=== PATIENT | female | born 1990 | race Caucasian/White ===

== ENCOUNTER 2016-03-12 10:13 | Emergency (ER) | payer BC ==
[2016-03-12] MEDS ORDERED: ONDANSETRON 4 MG/2 ML VIAL IVP ONE (10:28)
[2016-03-12] MEDS ORDERED: HYDROmorphONE/DILAUDID 1 MG/ML SYR IVP ONE (10:28)
[2016-03-12] MEDS ORDERED: KETOROLAC 30 MG/1 ML SDV IVP ONE (10:28)
[2016-03-12] MEDS ORDERED: NS 1,000 ML IV ONE ×2 (10:28→11:57)
--- NOTE | 2016-03-12 10:33 | EDPHY ---
H & P Stated Complaint: 3 days bloody diarrhea Time Seen by Provider: 03/12/16 10:22 - Personal History LMP (Females 10-55): 22-28 Days Ago Current Tetanus/Diphtheria Vaccine: Yes Tetanus Vaccine Date: 2008 - Medical/Surgical History Hx Asthma: Yes Hx Chronic Respiratory Disease: No Hx Diabetes: No Hx Cardiac Disease: No Hx Renal Disease: Yes Hx Cirrhosis: No Hx Alcoholism: Yes Hx HIV/AIDS: No Hx Splenectomy or Spleen Trauma: No Other PMH: anxiety, bipolar, depression, Hx. nephrectomy as . IBS. Asthma - Social History Smoking Status: Never smoked Constitutional: Initial Vital Signs Temperature (C) 36.7 C 03/12/16 10:19 Heart Rate 90 03/12/16 10:19 Respiratory Rate 16 03/12/16 10:19 Blood Pressure 121/82 H 03/12/16 10:19 O2 Sat (%) 95 03/12/16 10:19 O2 Delivery Mode Room Air Allergies/Adverse Reactions: No Known Allergies Allergy (Verified 03/12/16 10:16) Home Medications: Medication Instructions Recorded Cetirizine [ZyrTEC 10 mg (*)] 10 mg PO HS 06/13/14 Cholecalciferol Vit D3 [Vitamin D3 5,000 units PO DAILY 06/13/14 (*)] Docusate Sodium [Colace 100 MG (*)] 100 mg PO BID 06/13/14 Lansoprazole [Prevacid] 30 mg PO DAILY 06/13/14 Ranitidine HCl [Zantac 75] 150 mg PO HS 06/13/14 Ziprasidone HCl [Geodon 40MG (*)] 120 mg PO HS 06/13/14 Ziprasidone HCl [Geodon 40MG (*)] 40 mg PO DAILY #30 cap 06/19/14 Ziprasidone HCl [Geodon 40MG (*)] 60 mg PO DAILY@18 #60 cap 06/19/14 Gabapentin 05/12/15 Vyvanse 05/12/15 KLONOPIN 03/12/16 Propranolol HCl 03/12/16 Medical Decision Making ED Course/Re-evaluation: CHIEF COMPLAINT: Abdominal pain HISTORY OF PRESENT ILLNESS: 25-year-old female who has a long history of irritable bowel syndrome. She throughout her life it intermittent constipation and diarrhea. About 3 weeks ago she started having some significant constipation and was then having bowel movements and developed some bright red rectal bleeding which was painless. This happened her before. In fact, she has had a full colonoscopy recently to rule out any inflammatory bowel diseases and everything was negative the deemed her to have irritable bowel syndrome and she treats it symptomatically. Although throughout the years she has had intermittent bloody stools over the last 2 days she has had abdominal pain which now is located over the umbilicus and right lower quadrant. She is nauseated without vomiting. She has also been having diarrhea for several days. There is some bright red blood in the diarrhea but she states she was constipated right before this and that is when the bleeding started. She denies fevers or chills. She denies any other symptoms. She has never had any abdominal surgeries. REVIEW OF SYSTEMS: A 10 point review of systems was performed and is negative with the exception of the elements mentioned in the history of present illness. PHYSICAL EXAM: HR, BP, O2 Sat, RR. Temp noted General Appearance: Alert, well hydrated, appropriate, and non-toxic appearing. Head: Atraumatic without scalp tenderness or obvious injury Eyes: Pupils equal, round, reactive to light and accommodation, EOMI, no trauma , no injection. Ears: Clear bilaterally, no perforation, normal landmarks Nose: Atraumatic, no rhinorrhea, clear. Throat: There is no erythema or exudates, no lesions, normal tonsils, mucus membranes moist. Neck: Supple, 2+ carotid upstroke, nontender, no lymphadenopathy. Respiratory: No retractions, no distress, no wheezes, and no accessory muscle use. Lungs are clear to auscultation bilaterally. Cardiovascular: Regular rate and rhythm, no murmurs, rubs, or gallops. Bilateral carotid, radial, dorsalis pedis, and posterior tibial pulses intact. Good capillary refill all extremities. Gastrointestinal: Abdomen is soft, tenderness over McBurney's point, non- distended, no masses, no rebound, no guarding, no peritoneal signs. Musculoskeletal: Normal active ROM of all extremities, atraumatic. Neurological: Alert, appropriate, and interactive. The patient has normal DTRs and non-focal cranial nerves, motor, sensory, and cerebellar exam. Skin: No rashes, good turgor, no nodules on palpation. Past medical history: Irritable bowel syndrome Past surgical history: Colonoscopy Family history: No inflammatory bowel diseases according to the patient and the father Social history: Single, does not abuse tobacco drugs or alcohol, employed DIAGNOSTICS/PROCEDURES/CRITICAL CARE TIME: Study: CT of the abdomen and pelvis with IV contrast Indication: right lower quadrant pain Results: CT scan of the abdomen and pelvis was obtained. The results of the study are constipation even in the ascending colon and an atrophic kidney otherwise no acute findings. The study was read by the radiologist, Dr. Ramakrishna Mckenzie. I viewed the images myself on the PACS system. DIFFERENTIAL DIAGNOSIS: The differential diagnosis for the patient's abdominal pain included but was not limited to ovarian cyst, pelvic inflammatory disease, ovarian torsion, urinary tract infection, ectopic , cholecystitis, and appendicitis. MEDICAL DECISION MAKING: This patient is in no distress. We established IV access drawing blood giving IV fluids antiemetics and pain meds. She is having pain localized to the right lower quadrant. I am not too concerned about her bright red rectal blood which is painless and she has had recurrent bright red rectal bleeding over the last several years and negative colonoscopy to rule out any inflammatory bowel diseases. This patient has no acute findings on her abdominal pelvic CT scan and her laboratory studies are essentially unremarkable. She does have constipation even on the right side of her colon and I would imagine that is causing her symptoms. I will ask her to use some magnesium citrate unclear out completely. She will follow up with a newspaper editor. - Data Points Laboratory Results: Laboratory Results 03/12/16 10:29 03/12/16 10:29 03/12/16 03/12/16 10:40 10:29 WBC 6.03 10^3/uL (3.80-9.50) RBC 4.71 10^6/uL (4.18-5.33) Hgb 14.9 g/dL (12.6-16.3) Hct 42.0 % (38.0-47.0) MCV 89.2 fL (81.5-99.8) MCH 31.6 pg (27.9-34.1) MCHC 35.5 g/dL (32.4-36.7) RDW 11.6 % (11.5-15.2) Plt Count 252 10^3/uL (150-400) MPV 9.2 fL (8.7-11.7) Neut % (Auto) 55.2 % (39.3-74.2) Lymph % (Auto) 33.0 % (15.0-45.0) [place] % (Auto) 9.5 % (4.5-13.0) Eos % (Auto) 1.8 % (0.6-7.6) Baso % (Auto) 0.2 L % (0.3-1.7) Nucleat RBC Rel Count 0.0 % (0.0-0.2) Absolute Neuts (auto) 3.33 10^3/uL (1.70-6.50) Absolute Lymphs (auto) 1.99 10^3/uL (1.00-3.00) Absolute Monos (auto) 0.57 10^3/uL (0.30-0.80) Absolute Eos (auto) 0.11 10^3/uL (0.03-0.40) Absolute Basos (auto) 0.01 L 10^3/uL (0.02-0.10) Absolute Nucleated RBC 0.00 10^3/uL (0-0.01) Immature Gran % 0.3 % (0.0-1.1) Immature Gran # 0.02 10^3/uL (0.00-0.10) Sodium 139 mEq/L (134-144) Potassium 4.4 mEq/L (3.5-5.2) Chloride 103 mEq/L (97-110) Carbon Dioxide 24 mEq/l (22-31) Anion Gap 12 mEq/L (8-16) BUN 18 mg/dL (7-23) Creatinine 0.8 mg/dL (0.6-1.0) Estimated GFR > 60 Glucose 104 H mg/dL (70-100) Calcium 10.1 mg/dL (8.5-10.4) Total Bilirubin 0.4 mg/dL (0.1-1.4) Conjugated Bilirubin 0.4 mg/dL (0.0-0.5) Unconjugated Bilirubin 0.0 mg/dL (0.0-1.1) AST 25 IU/L (14-46) ALT 28 IU/L (9-52) Alkaline Phosphatase 72 IU/L (38-126) Total Protein 7.5 g/dL (6.3-8.2) Albumin 4.2 g/dL (3.5-5.0) Lipase 165.0 IU/L (23-300) Beta HCG, Qual NEGATIVE Medications Given: Discontinued Medications Hydromorphone HCl (Dilaudid) 0.5 mg IVP EDNOW ONE Stop: 03/12/16 10:29 Last Admin: 03/12/16 11:05 Dose: 0.5 mg Sodium Chloride (Ns) 1,000 mls @ 0 mls/hr IV ONCE ONE PRN Reason: Wide Open Stop: 03/12/16 10:29 Last Admin: 03/12/16 10:45 Dose: 1,000 mls Sodium Chloride (Ns) 1,000 mls @ 0 mls/hr IV ONCE ONE PRN Reason: Wide Open Stop: 03/12/16 11:58 Last Admin: 03/12/16 12:00 Dose: 1,000 mls Ketorolac Tromethamine (Toradol) 30 mg IVP EDNOW ONE Stop: 03/12/16 10:29 Last Admin: 03/12/16 11:06 Dose: 30 mg Departure - Departure Disposition: Home, Routine, Self-Care Clinical Impression: Constipation Qualifiers: Constipation type: chronic idiopathic constipation Qualifier Code: (K59.04) Chronic idiopathic constipation Condition: Good Instructions: Constipation (ED), High Fiber Diet (ED), Fleet Enema (ED) Additional Instructions: Start daily MiraLax and use 1 bottle of magnesium citrate today Referrals: Maria Luisa Pete PA [Primary Care Provider] - As per Instructions
[2016-03-12 10:50] LABS: % IMMATURE GRANULYOCYTES 0.3 % (0.0-1.1); ABSOLUTE IMMATURE GRANULOCYTES 0.02 10^3/uL (0.00-0.10); ADD DIFF? NO; ADD MORPH? NO; ADD SCAN? NO; ATYPICAL LYMPHOCYTE FLAG 0 (0-99); FRAGMENT RBC FLAG 0 (0-99); HEMOGLOBIN 14.9 g/dL (12.6-16.3); LEFT SHIFT FLG 0 (0-99); LIPEMIA HEMOLYSIS FLAG 90 (0-99); MEAN CELL HEMOGLOBIN 31.6 pg (27.9-34.1); MEAN CELL HEMOGLOBIN CONCENTR. 35.5 g/dL (32.4-36.7); MEAN CELL VOLUME 89.2 fL (81.5-99.8); MEAN PLATELET VOLUME 9.2 fL (8.7-11.7); PLATELET CLUMPS FLAG 0 (0-99); PLATELET COUNT 252 10^3/uL (150-400); RED BLOOD CELL COUNT 4.71 10^6/uL (4.18-5.33); RED CELL DISTRIBUTION WIDTH 11.6 % (11.5-15.2)
[2016-03-12 11:17] LABS: ALANINE AMINOTRANSFERASE 28 IU/L (9-52); ALBUMIN 4.2 g/dL (3.5-5.0); ALKALINE PHOSPHATASE 72 IU/L (38-126); ANION GAP 12 mEq/L (8-16); ASPARTATE AMINOTRANSFERASE 25 IU/L (14-46); BILIRUBIN,TOTAL 0.4 mg/dL (0.1-1.4); BILIRUBIN-CONJUGATED 0.4 mg/dL (0.0-0.5); CALCIUM 10.1 mg/dL (8.5-10.4); CARBON DIOXIDE 24 mEq/l (22-31); CHLORIDE 103 mEq/L (97-110); CREATININE 0.8 mg/dL (0.6-1.0); GLOMERULAR FILTRATION RATE > 60; GLUCOSE 104 mg/dL (70-100); POTASSIUM 4.4 mEq/L (3.5-5.2); SODIUM 139 mEq/L (134-144); TOTAL PROTEIN 7.5 g/dL (6.3-8.2)
[2016-03-12] MEDS ORDERED: IOPAMIDOL (ISOVUE-300) 100 ML BTL IV ONE (11:37)
--- NOTE | 2016-03-12 12:25 | CT ---
CT Scan of the Abdomen and Pelvis (With Contrast) at 1154 hours History: Right lower quadrant abdominal pain. Technique: Axial computed tomographic images of the abdomen and pelvis were obtained with the unevent ful intravenous administration of 90 mL Isovue-300 contrast. No oral or rectal contrast which limits the study. Dose reduction techniques were utilized. CT Abdomen Findings: Lung bases: Normal. Liver: Normal. Biliary system: No obstruction. Spleen: Normal. Pancreas: Normal. Adrenals: Normal. Kidneys: No obstruction or solid renal masses. Atrophy of the left kidney with cortical scarring alfredo cially in the upper pole left kidney. Slight hypertrophy of the right kidney. No ureterolithiasis or perinephric fluid. Abdominal Aorta: No aneurysm. No bowel obstruction, ascites, or significant retroperitoneal lymphadenopathy. CT Pelvis Findings: Moderate stool in the right colon. Appendix appears normal without inflammatory c hanges. Possible minimal appendicoliths. No inflammatory changes. No adnexal masses or significant ad enopathy. No significant free fluid. Impression: 1. Constipation. 2. No CT evidence of appendicitis, abscess or bowel obstruction. 3. Atrophic left kidney with cortical scarring upper pole. No urinary tract obstruction. Findings and recommendations discussed with Emergency Department physician, Dr. Daniel Gutierrez at 1210 hours, today. Final report concurs with initial preliminary interpretation.
[2016-03-12 12:45] VITALS: BP 107/58; PULSE 82; RESP 14; TEMP 97.7; O2SAT 98
== END 2016-03-12 12:44 | disposition home or self-care (01) ==
DX: K59.04 Chronic idiopathic constipation (principal); J45.909 Unspecified asthma, uncomplicated
CPT/HCPCS: 96374; J1170; J1885; Q9967

== ENCOUNTER 2016-05-14 01:43 | Emergency (ER) | payer BC ==
[2016-05-14] MEDS ORDERED: HALOPERIDOL LACT 5 MG/ML INJ ONE (02:02)
[2016-05-14] MEDS ORDERED: HALOPERIDOL LACT 5 MG/ML INJ IM ONE (02:03)
--- NOTE | 2016-05-14 02:03 | EDPHY ---
H & P Stated Complaint: mental health eval request Source: Patient - Personal History LMP (Females 10-55): Now Tetanus Vaccine Date: 2008 - Medical/Surgical History Hx Asthma: Yes Hx Chronic Respiratory Disease: No Hx Diabetes: No Hx Cardiac Disease: No Hx Renal Disease: Yes Hx Cirrhosis: No Hx Alcoholism: Yes Hx HIV/AIDS: No Hx Splenectomy or Spleen Trauma: No Other PMH: anxiety, bipolar, depression, Hx. nephrectomy as infant. IBS. Asthma - Social History Smoking Status: Never smoked HPI/ROS: HPI CHIEF COMPLAINT: Alcohol intoxication, combative behavior HISTORY OF PRESENT ILLNESS: This patient 25-year-old female, she presents emergency room by private vehicle with her father who states he cannot handle her aggressive behavior at home. She has been drinking alcohol. Unclear exactly how much. She is highly intoxicated with alcohol and presents emergency room. Her father does not feel safe with her at home. She is angry, physically aggressive and intoxicated. She does have significant past medical history for bipolar disorder. She has been admitted at [facility] [place] before. Unclear if any drugs. Upon arrival here to the emergency room the patient is is screaming uncontrollably at the top of her lungs, she does not follow commands. She is aggressive with staff she threw a chair. The chair did hit 1 of the ER techs. She is requiring security at bedside. Due to her aggressive behavior intoxication of alcohol, not following commands and screaming at the top of her lungs she will require 5 mg IM Haldol. Past Medical History:Bipolar disorder Past Surgical History: Unknown surgical history Social History: Drinks alcohol, no drugs Family History: Noncontributory ROS REVIEW OF SYSTEMS: A comprehensive 10 point review of systems is otherwise negative aside from elements mentioned in the history of present illness. Exam Constitutional smells of alcohol, acutely agitated, combative, physically aggressive, screaming triage nursing summary reviewed, vital signs reviewed Eyes normal conjunctivae and sclera, EOMI, PERRLA. HENT normal inspection, atraumatic, moist mucus membranes, no epistaxis, neck supple/ no meningismus, no raccoon eyes. Respiratory clear to auscultation bilaterally, normal breath sounds, no respiratory distress, no wheezing. Cardiovascular rate normal, regular rhythm, no murmur, no edema, distal pulses normal. Gastrointestinal soft, non-tender, no rebound, no guarding, normal bowel sounds, no distension, no pulsatile mass. Genitourinary no CVA tenderness. Musculoskeletal no midline vertebral tenderness, full range of motion, no calf swelling, no tenderness of extremities, no meningismus, good pulses, neurovascularly intact. Skin pink, warm, & dry, no rash, skin atraumatic. Neurologic screaming, agitated, moves everything, walks, intoxicated alcohol Psychiatric screaming, agitated Heme/Lymph/Immune no lymphadenopathy. Differential Diagnosis: Includes but is not limited to in a particular order acute alcohol intoxication, bipolar disorder, aggressive behavior, substance abuse, psychosis, christine Medical Decision Making: plan for this patient due to her aggressive behavior and alcohol intoxication she will be put in room 19. She did throw chairs staff we removed her bed. She has no objects in the room. She did receive 5 mg IM Haldol. Will place her on a monitor. Check blood work, alcohol level, drug screen, electrolytes. Re-evaluation: 0642AM: Patient signed over to Dr. Moreno at 7am Shift change. Patient is sleeping. She did come down after two 5 mg doses of IM Haldol. Patient is on a detainer. (Armen Hagen) I assumed care of this patient from Dr. Hagen at 7:00 a.m.. She was cooperative with me while under my care. She underwent mental health evaluation. She does not meet criteria for hospitalization. She is being discharged home to the care of her father, who is here today. He has agreed with this plan. She has an appointment with her counselor/psychiatrist on Wednesday, 4 days hence. She is given instructions about alcohol abuse. She is aware of local support groups. (Shani Moreno) Constitutional: Initial Vital Signs Heart Rate 93 05/14/16 01:45 Respiratory Rate 20 05/14/16 01:45 Blood Pressure 106/88 H 05/14/16 01:45 O2 Sat (%) 98 05/14/16 01:45 O2 Delivery Mode Room Air Allergies/Adverse Reactions: No Known Allergies Allergy (Verified 05/14/16 01:45) Home Medications: Medication Instructions Recorded Cetirizine [ZyrTEC 10 mg (*)] 10 mg PO HS 06/13/14 Cholecalciferol Vit D3 [Vitamin D3 5,000 units PO DAILY 06/13/14 (*)] Docusate Sodium [Colace 100 MG (*)] 100 mg PO BID 06/13/14 Lansoprazole [Prevacid] 30 mg PO DAILY 06/13/14 Ranitidine HCl [Zantac 75] 150 mg PO HS 06/13/14 Ziprasidone HCl [Geodon 40MG (*)] 120 mg PO HS 06/13/14 Ziprasidone HCl [Geodon 40MG (*)] 40 mg PO DAILY #30 cap 06/19/14 Ziprasidone HCl [Geodon 40MG (*)] 60 mg PO DAILY@18 #60 cap 06/19/14 Gabapentin 05/12/15 Vyvanse 05/12/15 KLONOPIN 03/12/16 Propranolol HCl 03/12/16 Medical Decision Making ED Course/Re-evaluation: 07: Patient signed out to me by Dr. Hagen at shift change. (Shani Moreno ) - Data Points Laboratory Results: Laboratory Results 05/14/16 04:16 05/14/16 04:16 05/14/16 05/14/16 05/14/16 04:16 04:16 04:16 WBC 6.13 10^3/uL 10^3/uL (3.80-9.50) RBC 4.54 10^6/uL 10^6/uL (4.18-5.33) Hgb 14.0 g/dL g/dL (12.6-16.3) Hct 40.8 % % (38.0-47.0) MCV 89.9 fL fL (81.5-99.8) MCH 30.8 pg pg (27.9-34.1) MCHC 34.3 g/dL g/dL (32.4-36.7) RDW 11.9 % % (11.5-15.2) Plt Count 288 10^3/uL 10^3/uL (150-400) MPV 9.3 fL fL (8.7-11.7) Neut % (Auto) 39.3 % % (39.3-74.2) Lymph % (Auto) 46.7 % H % (15.0-45.0) [place] % (Auto) 10.3 % % (4.5-13.0) Eos % (Auto) 2.0 % % (0.6-7.6) Baso % (Auto) 0.7 % % (0.3-1.7) Nucleat RBC Rel Count 0.0 % % (0.0-0.2) Absolute Neuts (auto) 2.42 10^3/uL 10^3/uL (1.70-6.50) Absolute Lymphs (auto) 2.86 10^3/uL 10^3/uL (1.00-3.00) Absolute Monos (auto) 0.63 10^3/uL 10^3/uL (0.30-0.80) Absolute Eos (auto) 0.12 10^3/uL 10^3/uL (0.03-0.40) Absolute Basos (auto) 0.04 10^3/uL 10^3/uL (0.02-0.10) Absolute Nucleated RBC 0.00 10^3/uL 10^3/uL (0-0.01) Immature Gran % 1.0 % % (0.0-1.1) Immature Gran # 0.06 10^3/uL 10^3/uL (0.00-0.10) Sodium 146 mEq/L H mEq/L (134-144) Potassium 4.0 mEq/L mEq/L (3.5-5.2) Chloride 109 mEq/L mEq/L (97-110) Carbon Dioxide 22 mEq/l mEq/l (22-31) Anion Gap 15 mEq/L mEq/L (8-16) BUN 10 mg/dL mg/dL (7-23) Creatinine 0.8 mg/dL mg/dL (0.6-1.0) Estimated GFR > 60 Glucose 97 mg/dL mg/dL (70-100) Calcium 9.9 mg/dL mg/dL (8.5-10.4) Beta HCG, Qual NEGATIVE Salicylates < 1.0 mg/dL L mg/dL (2.0-20.0) Urine Opiates Screen Acetaminophen < 10 mcg/mL L mcg/mL (10.0-30.0) Urine Barbiturates Ur Phencyclidine Scrn Ur Amphetamine Screen U Benzodiazepines Scrn Urine Cocaine Screen U Marijuana (THC) Screen Ethyl Alcohol 179 mg/dL H mg/dL (0-10) 05/14/16 02:30 WBC RBC Hgb Hct MCV MCH MCHC RDW Plt Count MPV Neut % (Auto) Lymph % (Auto) [place] % (Auto) Eos % (Auto) Baso % (Auto) Nucleat RBC Rel Count Absolute Neuts (auto) Absolute Lymphs (auto) Absolute Monos (auto) Absolute Eos (auto) Absolute Basos (auto) Absolute Nucleated RBC Immature Gran % Immature Gran # Sodium Potassium Chloride Carbon Dioxide Anion Gap BUN Creatinine Estimated GFR Glucose Calcium Beta HCG, Qual Salicylates Urine Opiates Screen NON-NEGATIVE H (NEGATIVE) Acetaminophen Urine Barbiturates NEGATIVE (NEGATIVE) Ur Phencyclidine Scrn NEGATIVE (NEGATIVE) Ur Amphetamine Screen NON-NEGATIVE H (NEGATIVE) U Benzodiazepines Scrn NEGATIVE (NEGATIVE) Urine Cocaine Screen NEGATIVE (NEGATIVE) U Marijuana (THC) Screen NEGATIVE (NEGATIVE) Ethyl Alcohol Medications Given: Discontinued Medications Haloperidol Lactate (Haldol Injection) 5 mg IM EDNOW ONE Stop: 05/14/16 02:04 Last Admin: 05/14/16 02:58 Dose: 5 mg Departure - Departure Disposition: Home, Routine, Self-Care Clinical Impression: Alcohol abuse Condition: Good Instructions: Abuse of Alcohol (ED) Additional Instructions: Follow up with your psychiatrist as planned. Referrals: FERMÍN LEVY [Other] - As per Instructions
[2016-05-14 04:24] VITALS: PULSE 87
[2016-05-14 04:34] LABS: ABSOLUTE IMMATURE GRANULOCYTES 0.06 10^3/uL (0.00-0.10); ADD DIFF? NO; ADD MORPH? NO; ADD SCAN? NO; ATYPICAL LYMPHOCYTE FLAG 10 (0-99); FRAGMENT RBC FLAG 10 (0-99); HEMATOCRIT 40.8 % (38.0-47.0); LEFT SHIFT FLG 10 (0-99); LIPEMIA HEMOLYSIS FLAG 90 (0-99); MEAN CELL HEMOGLOBIN 30.8 pg (27.9-34.1); MEAN CELL HEMOGLOBIN CONCENTR. 34.3 g/dL (32.4-36.7); MEAN CELL VOLUME 89.9 fL (81.5-99.8); MEAN PLATELET VOLUME 9.3 fL (8.7-11.7); PLATELET CLUMPS FLAG 0 (0-99); PLATELET COUNT 288 10^3/uL (150-400); RED BLOOD CELL COUNT 4.54 10^6/uL (4.18-5.33); RED CELL DISTRIBUTION WIDTH 11.9 % (11.5-15.2)
[2016-05-14 04:46] LABS: ANION GAP 15 mEq/L (8-16); CALCIUM 9.9 mg/dL (8.5-10.4); CARBON DIOXIDE 22 mEq/l (22-31); CHLORIDE 109 mEq/L (97-110); CREATININE 0.8 mg/dL (0.6-1.0); ETHANOL SERUM 179 mg/dL (0-10); GLOMERULAR FILTRATION RATE > 60; GLUCOSE 97 mg/dL (70-100); SALICYLATE < 1.0 mg/dL (2.0-20.0); SODIUM 146 mEq/L (134-144)
[2016-05-14 10:55] VITALS: BP 118/70; RESP 80; O2SAT 16
== END 2016-05-14 10:44 | disposition home or self-care (01) ==
DX: F10.10 Alcohol abuse, uncomplicated (principal); J45.909 Unspecified asthma, uncomplicated
CPT/HCPCS: 80305; G0480

== ENCOUNTER 2016-06-10 09:18 | Emergency (ER) | payer BC ==
[2016-06-10] MEDS ORDERED: CEPHALEXIN 500 MG CAP PO ONE (10:26)
--- NOTE | 2016-06-10 10:26 | EDPHY ---
H & P Stated Complaint: cut r palm last night 0100/r index finger is numb HPI/ROS: Chief complaint: Right hand laceration History of present illness: This is a 25-year-old female who presents to the emergency department for a right hand laceration. Patient reports that last night she was preparing food when she cut her right hand at the base of the pointer finger. This was approximately 9-10 hours ago. Since then she has had pain at the site of injury. However she is concerned as there is numbness in her pointer finger and she is having trouble flexing it. She denies other associated signs or symptoms including no abnormal coolness to the fingers, no other paresthesias reported. Her tetanus is up-to-date. - Personal History LMP (Females 10-55): Now Current Tetanus/Diphtheria Vaccine: Yes Tetanus Vaccine Date: 2008 - Medical/Surgical History Hx Asthma: Yes Hx Chronic Respiratory Disease: No Hx Diabetes: No Hx Cardiac Disease: No Hx Renal Disease: Yes Hx Cirrhosis: No Hx Alcoholism: Yes Hx HIV/AIDS: No Hx Splenectomy or Spleen Trauma: No Other PMH: anxiety, bipolar, depression, Hx. nephrectomy as infant. IBS. Asthma - Social History Smoking Status: Never smoked - Physical Exam Exam: General: Alert, nontoxic Skin: There is a 3 cm laceration on the palmar surface of the right hand at the base of the pointer finger. Exploration does not reveal foreign bodies. Musculoskeletal: Patient is having difficulty flexing her right pointer finger in the MCP, PIP and the DIP joint, although she can minimally flex them all, she extends it well. She is moving all other digits all joints in all muhammad well. Vascular: Capillary refill brisk in the right pointer finger and other fingers. Radial pulse 2 +. Neurologic: There is decreased sensation to the lateral aspect of the right pointer finger. Sensation appears to be intact to the medial aspect of the finger. The rest of the fingers have good sensation. Constitutional: Initial Vital Signs Temperature (C) 36.4 C 06/10/16 09:23 Heart Rate 88 06/10/16 09:23 Respiratory Rate 18 06/10/16 09:23 Blood Pressure 124/82 H 06/10/16 09:23 O2 Sat (%) 95 06/10/16 09:23 O2 Delivery Mode Room Air Allergies/Adverse Reactions: No Known Allergies Allergy (Verified 05/03/17 09:21) Home Medications: Medication Instructions Recorded Cetirizine [ZyrTEC 10 mg (*)] 10 mg PO HS 06/13/14 Cholecalciferol Vit D3 [Vitamin D3 5,000 units PO DAILY 06/13/14 (*)] Docusate Sodium [Colace 100 MG (*)] 100 mg PO BID 06/13/14 Lansoprazole [Prevacid] 30 mg PO DAILY 06/13/14 Ranitidine HCl [Zantac 75] 150 mg PO HS 06/13/14 Ziprasidone HCl [Geodon 40MG (*)] 120 mg PO HS 06/13/14 Ziprasidone HCl [Geodon 40MG (*)] 40 mg PO DAILY #30 cap 06/19/14 Ziprasidone HCl [Geodon 40MG (*)] 60 mg PO DAILY@18 #60 cap 06/19/14 Gabapentin 05/12/15 Vyvanse 05/12/15 KLONOPIN 03/12/16 Propranolol HCl 03/12/16 Cephalexin [Keflex] 500 mg PO QID 5 Days 06/10/16 Medical Decision Making Procedures: Procedure: Laceration repair. Verbal consent was obtained from the patient. The 3 cm laceration on the right hand was anesthetized in the usual fashion. The wound was irrigated, draped and explored to its base with a gloved finger. There were no deep structures involved. No tendon injury was identified. The wound was repaired with 5 0 Prolene, loose approximation. The wound repair was simple. The procedure was performed by myself. Procedure: Splint placement. A finger splint was applied. After application of the splint I returned and re- examined the patient. The splint was adequately immobilizing the joint and distal to the splint the patient's circulation and sensation was intact. ED Course/Re-evaluation: Patient seen under the supervision of my secondary supervising physician Dr. Jude Arredondo. Patient presents to the emergency department for evaluation of a laceration to her right hand. I am concerned she has an injury to a nerve and possibly a flexor tendon. Her hand is vascularly intact. Her tetanus is already up-to-date. I have consulted with Dr. Casper. He is comfortable with loose closure and splinting in the emergency room. Patient is anesthetized, the wound is copiously irrigated, loosely approximated and splinted. She is started on Keflex. Patient is discharged home. I have had lengthy discussion on the importance of following with hand surgery for definitive care and referral information was provided. Strict return precautions were given. Patient voiced understanding and agreement with plan. Differential Diagnosis: Included but not limited to skin laceration, deep structure injury, foreign body contamination - Data Points Medications Given: Discontinued Medications Cephalexin HCl (Keflex) 500 mg PO EDNOW ONE PRN Reason: Protocol Stop: 06/10/16 10:27 Last Admin: 06/10/16 10:29 Dose: 500 mg Departure - Departure Disposition: Home, Routine, Self-Care Clinical Impression: Finger laceration with complication Qualifiers: Encounter type: initial encounter Qualified Code(s): S61.219A - Laceration without foreign body of unspecified finger without damage to nail, initial encounter Condition: Good Instructions: Care For Your Stitches (ED), Laceration (ED), Acute Wounds (ED) Additional Instructions: Please call and arrange a follow-up appoint with hand surgery this week If symptoms worsen or new symptoms develop return to the emergency room for recheck Referrals: Maria Luisa Pete PA [Primary Care Provider] - As per Instructions Matti Casper MD [Medical Doctor] - As per Instructions Stand Alone Forms: Work Excuse Prescriptions: Cephalexin [Keflex] 500 mg PO QID 5 Days
[2016-06-10 11:10] VITALS: BP 112/76; PULSE 75; RESP 16; TEMP 96.8; O2SAT 98
== END 2016-06-10 11:10 | disposition home or self-care (01) ==
PROC: 0HQFXZZ Repair Right Hand Skin, External Approach (ICD-10-PCS; principal; 2016-06-10)
DX: S61.411A Laceration without foreign body of right hand, initial encounter (principal); J45.909 Unspecified asthma, uncomplicated; W45.8XXA Other foreign body or object entering through skin, initial encounter; Y99.8 Other external cause status; Y93.89 Activity, other specified

== ENCOUNTER 2016-07-09 23:32 | Emergency (ER) | payer BC ==
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
[2016-07-10 00:12] LABS: % IMMATURE GRANULYOCYTES 0.3 % (0.0-1.1); ABSOLUTE IMMATURE GRANULOCYTES 0.03 10^3/uL (0.00-0.10); ADD DIFF? NO; ADD MORPH? NO; ADD SCAN? NO; ATYPICAL LYMPHOCYTE FLAG 20 (0-99); FRAGMENT RBC FLAG 0 (0-99); HEMATOCRIT 41.1 % (38.0-47.0); HEMOGLOBIN 15.1 g/dL (12.6-16.3); LEFT SHIFT FLG 0 (0-99); LIPEMIA HEMOLYSIS FLAG 90 (0-99); MEAN CELL HEMOGLOBIN 31.9 pg (27.9-34.1); MEAN CELL HEMOGLOBIN CONCENTR. 36.7 g/dL (32.4-36.7); MEAN CELL VOLUME 86.9 fL (81.5-99.8); MEAN PLATELET VOLUME 9.6 fL (8.7-11.7); PLATELET CLUMPS FLAG 0 (0-99); PLATELET COUNT 296 10^3/uL (150-400); RED BLOOD CELL COUNT 4.73 10^6/uL (4.18-5.33); RED CELL DISTRIBUTION WIDTH 11.5 % (11.5-15.2)
[2016-07-10 00:30] LABS: ANION GAP 15 mEq/L (8-16); CARBON DIOXIDE 20 mEq/l (22-31); CHLORIDE 109 mEq/L (97-110); ETHANOL SERUM 220 mg/dL (0-10); GLOMERULAR FILTRATION RATE > 60; GLUCOSE 95 mg/dL (70-100); POTASSIUM 4.2 mEq/L (3.5-5.2); SALICYLATE < 1.0 mg/dL (2.0-20.0); SODIUM 144 mEq/L (134-144)
[2016-07-10] MEDS: ZIPRASIDONE HCL 40 MG CAP PO SCH ×2 (00:30→08:57)
[2016-07-10] MEDS ORDERED: LORazepam 2 MG/ML INJ ONE (01:24)
[2016-07-10] MEDS ORDERED: LORazepam 2 MG/ML INJ IVP ONE (01:40)
[2016-07-10] MEDS ORDERED: clonazePAM 1 MG TAB ONE (08:35)
[2016-07-10] MEDS ORDERED: clonazePAM 1 MG TAB PO ONE (08:48)
[2016-07-10] MEDS ORDERED: FAMOTIDINE 20 MG TAB ONE (08:49)
[2016-07-10] MEDS ORDERED: FAMOTIDINE 20 MG TAB PO ONE (08:57)
[2016-07-10 09:09] VITALS: RESP 16
[2016-07-10 12:01] VITALS: BP 132/78; PULSE 89; TEMP 98.7; O2SAT 95
== END 2016-07-10 12:00 ==
DX: F28 Other psychotic disorder not due to a substance or known physiological condition (principal); F10.120 Alcohol abuse with intoxication, uncomplicated; J45.909 Unspecified asthma, uncomplicated; F17.200 Nicotine dependence, unspecified, uncomplicated
CPT/HCPCS: 80305; 96374; G0480; J2060

== ENCOUNTER 2016-07-16 18:54 | Emergency (ER) | payer BC, OTHER ==
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
[2016-07-16] MEDS ORDERED: AZITHROMYCIN 250 MG TAB PO ONE ×2 (21:19→23:29)
[2016-07-16] MEDS ORDERED: CEFTRIAXONE IM 350 MG/ML SYRINGE IM ONE (21:19)
[2016-07-16 23:48] VITALS: BP 107/94; PULSE 88; RESP 14; TEMP 97.9; O2SAT 93
== END 2016-07-17 00:46 | disposition home or self-care (01) ==
LOC: EDUNIT# → EEVIPCON 18:54
DX: N76.0 Acute vaginitis (principal); J45.909 Unspecified asthma, uncomplicated; F17.200 Nicotine dependence, unspecified, uncomplicated
CPT/HCPCS: J0696

== ENCOUNTER 2017-11-22 21:54 | Emergency (ER) | payer BC ==
[2017-11-22] MEDS ORDERED: NS 1,000 ML IV ONE (22:15)
--- NOTE | 2017-11-22 22:15 | EDPHY ---
H & P Stated Complaint: abd pain, vomiting, diarrhea Time Seen by Provider: 11/22/17 22:16 HPI/ROS: HPI CHIEF COMPLAINT: Abdominal pain. HISTORY OF PRESENT ILLNESS: 26-year-old female, otherwise healthy does have a history of anxiety, bipolar disorder and IBS presents emergency room with abdominal pain. She reports to me that she has had abdominal pain and this type of abdominal pain for months. However today progressively got worse over the last 24 hr. She describes sharp stabbing is mainly on her right side. Right lower quadrant and right upper quadrant. She has associated nausea. She states she vomited multiple times. Also states she had streaks of bright red blood in her vomit. Denies fever, denies chest pain shortness of breath, denies urinary symptoms. Past Medical History: IBS, asthma, anxiety, bipolar disorder Past Surgical History: No recent surgery Social History: denies drugs alcohol tobacco. Family History: Noncontributory ROS REVIEW OF SYSTEMS: 10 Systems were reviewed and negative with the exception of the elements mentioned in the history of present illness. Exam Constitutional nontoxic no acute distress, triage nursing summary reviewed, vital signs reviewed, awake/alert. Eyes normal conjunctivae and sclera, EOMI, PERRLA. HENT normal inspection, atraumatic, moist mucus membranes, no epistaxis, neck supple/ no meningismus, no raccoon eyes. Respiratory clear to auscultation bilaterally, normal breath sounds, no respiratory distress, no wheezing. Cardiovascular rate normal, regular rhythm, no murmur, no edema, distal pulses normal. Gastrointestinal mild right-sided abdominal pain, no rebound, no guarding, normal bowel sounds, no distension, no pulsatile mass. Genitourinary no CVA tenderness. Musculoskeletal no midline vertebral tenderness, full range of motion, no calf swelling, no tenderness of extremities, no meningismus, good pulses, neurovascularly intact. Skin pink, warm, & dry, no rash, skin atraumatic. Neurologic awake, alert and oriented x 3, AAOx3, moves all 4 extremities equally, motor intact, sensory intact, CN II-XII intact, normal cerebellar, normal vision, normal speech. Psychiatric normal mood/affect. Heme/Lymph/Immune no lymphadenopathy. Differential diagnosis includes but is not limited to and in no particular order : Bowel obstruction, appendicitis, gallbladder disease, diverticulitis, colitis , enteritis, perforated viscus, gastritis, GERD, esophagitis, urinary tract infection, pyelonephritis, kidney stones Medical Decision Making: Plan for this patient IV established with IV fluid bolus, IV Zofran 4 mg for nausea, IV Dilaudid 0.5 mg for pain control, basic blood work, urinalysis, CT scan abdomen pelvis with IV contrast rule out acute appendicitis given right-sided abdominal pain. Re-evaluation: CT scan abdomen pelvis with IV contrast: Negative for acute inflammatory process called to me by Dr. Hardin Blood work and urinalysis reviewed. Urinalysis indicated nitrite positive UTI. Urine cultures been sent. 1 g Rocephin has been given. Keflex and peridium for home. Return precautions discussed with patient return emergency room for worsening abdominal pain, fever, vomiting. At time of discharge abdomen is soft nontender she is comfortable this plan. Patient explains to me that she has recurrent urinary tract infection. Multiple per month. I do recommend she follows up with Urology for this. Referral provided. Source: Patient - Personal History LMP (Females 10-55): Extended Cycle BCP/Inj Tetanus Vaccine Date: 2008 - Medical/Surgical History Hx Asthma: Yes Hx Chronic Respiratory Disease: No Hx Diabetes: No Hx Cardiac Disease: No Hx Renal Disease: Yes Hx Cirrhosis: No Hx Alcoholism: Yes Hx HIV/AIDS: No Hx Splenectomy or Spleen Trauma: No Other PMH: anxiety, bipolar, depression, Hx. nephrectomy as infant. IBS, PTSD. Asthma - Social History Smoking Status: Current every day smoker Constitutional: Initial Vital Signs Temperature (C) 36.8 C 11/22/17 21:58 Heart Rate 84 11/22/17 21:58 Respiratory Rate 20 11/22/17 21:58 Blood Pressure 132/92 H 11/22/17 21:58 O2 Sat (%) 93 11/22/17 21:58 O2 Delivery Mode Room Air Allergies/Adverse Reactions: No Known Allergies Allergy (Verified 11/22/17 21:58) Home Medications: Medication Instructions Recorded Cetirizine [ZyrTEC 10 mg (*)] 10 mg PO HS 06/13/14 Cholecalciferol Vit D3 [Vitamin D3 5,000 units PO DAILY 06/13/14 (*)] Docusate Sodium [Colace 100 MG (*)] 100 mg PO BID 06/13/14 Lansoprazole [Prevacid] 30 mg PO DAILY 06/13/14 Ranitidine HCl [Zantac 75] 150 mg PO HS 06/13/14 Ziprasidone HCl [Geodon 40MG (*)] 120 mg PO HS 06/13/14 Ziprasidone HCl [Geodon 40MG (*)] 40 mg PO DAILY #30 cap 06/19/14 Ziprasidone HCl [Geodon 40MG (*)] 60 mg PO DAILY@18 #60 cap 06/19/14 Gabapentin 05/12/15 Vyvanse 05/12/15 KLONOPIN 03/12/16 Propranolol HCl 03/12/16 Cephalexin [Keflex] 500 mg PO QID 5 Days cap 06/10/16 Metronidazole 500 mg PO BID #14 tablet 07/16/16 Cephalexin [Keflex] 500 mg PO Q6H #28 cap 11/23/17 Medical Decision Making - Diagnostics Imaging Results: Imaging Impressions Abdomen CT 11/22/17 22:28 Impression: 1. No acute abdominal or pelvic abnormality. 2. Negative for appendicitis. There is been no significant change from the prior study. Results called and discussed with Armen Hagen MD on 11/22/2017 at 23:28. - Data Points Laboratory Results: Laboratory Results 11/22/17 22:17 11/22/17 22:17 11/22/17 11/22/17 11/22/17 23:30 22:17 22:17 WBC RBC Hgb Hct MCV MCH MCHC RDW Plt Count MPV Neut % (Auto) Lymph % (Auto) [place] % (Auto) Eos % (Auto) Baso % (Auto) Nucleat RBC Rel Count Absolute Neuts (auto) Absolute Lymphs (auto) Absolute Monos (auto) Absolute Eos (auto) Absolute Basos (auto) Absolute Nucleated RBC Immature Gran % Immature Gran # PT 13.2 SEC SEC (12.0-15.0) INR 0.98 (0.83-1.16) APTT 29.2 SEC SEC (23.0-38.0) VBG Lactic Acid Sodium Potassium Chloride Carbon Dioxide Anion Gap BUN Creatinine Estimated GFR Glucose Calcium Total Bilirubin Conjugated Bilirubin Unconjugated Bilirubin AST ALT Alkaline Phosphatase Total Protein Albumin Lipase Beta HCG, Qual NEGATIVE Urine Color YELLOW Urine Appearance MODERATELY TURBID Urine pH 6.0 (5.0-7.5) Ur Specific [place] 1.027 (1.002-1.030) Urine Protein NEGATIVE (NEGATIVE) Urine Ketones NEGATIVE (NEGATIVE) Urine Blood NEGATIVE (NEGATIVE) Urine Nitrate POSITIVE H (NEGATIVE) Urine Bilirubin NEGATIVE (NEGATIVE) Urine Urobilinogen NEGATIVE EU EU (0.2-1.0) Ur Leukocyte Esterase 3+ H (NEGATIVE) Urine RBC 1-3 /hpf /hpf (0-3) Urine WBC 50-182 /hpf H /hpf (0-3) Ur Epithelial Cells TRACE /lpf /lpf (NONE-1+) Urine Bacteria 1+ /hpf H /hpf (NONE SEEN) Urine Glucose NEGATIVE (NEGATIVE) 11/22/17 11/22/17 11/22/17 22:17 22:17 22:17 WBC 7.33 10^3/uL 10^3/uL (3.80-9.50) RBC 5.28 10^6/uL 10^6/uL (4.18-5.33) Hgb 16.2 g/dL g/dL (12.6-16.3) Hct 47.0 % % (38.0-47.0) MCV 89.0 fL fL (81.5-99.8) MCH 30.7 pg pg (27.9-34.1) MCHC 34.5 g/dL g/dL (32.4-36.7) RDW 12.5 % % (11.5-15.2) Plt Count 256 10^3/uL 10^3/uL (150-400) MPV 9.8 fL fL (8.7-11.7) Neut % (Auto) 52.7 % % (39.3-74.2) Lymph % (Auto) 35.7 % % (15.0-45.0) [place] % (Auto) 10.2 % % (4.5-13.0) Eos % (Auto) 0.8 % % (0.6-7.6) Baso % (Auto) 0.3 % % (0.3-1.7) Nucleat RBC Rel Count 0.0 % % (0.0-0.2) Absolute Neuts (auto) 3.86 10^3/uL 10^3/uL (1.70-6.50) Absolute Lymphs (auto) 2.62 10^3/uL 10^3/uL (1.00-3.00) Absolute Monos (auto) 0.75 10^3/uL 10^3/uL (0.30-0.80) Absolute Eos (auto) 0.06 10^3/uL 10^3/uL (0.03-0.40) Absolute Basos (auto) 0.02 10^3/uL 10^3/uL (0.02-0.10) Absolute Nucleated RBC 0.00 10^3/uL 10^3/uL (0-0.01) Immature Gran % 0.3 % % (0.0-1.1) Immature Gran # 0.02 10^3/uL 10^3/uL (0.00-0.10) PT INR APTT VBG Lactic Acid 1.3 mmol/L mmol/L (0.7-2.1) Sodium 141 mEq/L mEq/L (135-145) Potassium 4.5 mEq/L mEq/L (3.3-5.0) Chloride 103 mEq/L mEq/L (97-110) Carbon Dioxide 22 mEq/l mEq/l (22-31) Anion Gap 16 mEq/L H mEq/L (6-14) BUN 14 mg/dL mg/dL (7-23) Creatinine 1.0 mg/dL mg/dL (0.6-1.0) Estimated GFR > 60 Glucose 96 mg/dL mg/dL (70-100) Calcium 10.6 mg/dL H mg/dL (8.5-10.4) Total Bilirubin 0.5 mg/dL mg/dL (0.1-1.4) Conjugated Bilirubin 0.2 mg/dL mg/dL (0.0-0.5) Unconjugated Bilirubin 0.3 mg/dL mg/dL (0.0-1.1) AST 25 IU/L IU/L (14-46) ALT 33 IU/L IU/L (9-52) Alkaline Phosphatase 142 IU/L H IU/L (38-126) Total Protein 8.3 g/dL H g/dL (6.3-8.2) Albumin 5.0 g/dL g/dL (3.5-5.0) Lipase 108 IU/L IU/L (23-300) Beta HCG, Qual Urine Color Urine Appearance Urine pH Ur Specific [place] Urine Protein Urine Ketones Urine Blood Urine Nitrate Urine Bilirubin Urine Urobilinogen Ur Leukocyte Esterase Urine RBC Urine WBC Ur Epithelial Cells Urine Bacteria Urine Glucose Medications Given: Discontinued Medications Hydromorphone HCl (Dilaudid) 0.5 mg IVP EDNOW ONE Stop: 11/22/17 22:31 Last Admin: 11/22/17 22:36 Dose: 0.5 mg Sodium Chloride (Ns) 1,000 mls @ 0 mls/hr IV EDNOW ONE; Wide Open PRN Reason: Protocol Stop: 11/22/17 22:16 Last Admin: 11/22/17 22:25 Dose: 1,000 mls Ceftriaxone Sodium/Dextrose (Rocephin 1 Gm (Premix)) 50 mls @ 100 mls/hr IV EDNOW ONE PRN Reason: Protocol Stop: 11/23/17 00:52 Last Admin: 11/23/17 00:47 Dose: 50 mls Departure - Departure Disposition: Home, Routine, Self-Care Clinical Impression: Abdominal pain Qualifiers: Abdominal location: generalized Qualified Code(s): R10.84 - Generalized abdominal pain UTI (urinary tract infection) Qualifiers: Urinary tract infection type: acute cystitis Hematuria presence: without hematuria Qualified Code(s): N30.00 - Acute cystitis without hematuria Condition: Good Instructions: Urinary Tract Infection in Women (ED), Acute Abdominal Pain (ED) Additional Instructions: 1. Drink lots of fluids stay well-hydrated 2. Antibiotics as prescribed. 3. Return emergency room if he develops worsening abdominal pain, fever, vomiting. Referrals: LOPEZ BROWN [Primary Care Provider] - As per Instructions Brandon Wolf MD [Medical Doctor] - As per Instructions Prescriptions: Cephalexin [Keflex] 500 mg PO Q6H #28 cap
[2017-11-22 22:25] LABS: PLATELET COUNT 256 10^3/uL (150-400)
[2017-11-22] MEDS ORDERED: HYDROmorphONE/DILAUDID 2 MG/ML INJ IVP ONE (22:30)
[2017-11-22 22:32] LABS: INR 0.98 (0.83-1.16); PROTIME(PATIENT) 13.2 SEC (12.0-15.0)
[2017-11-22] MEDS ORDERED: IOPAMIDOL (ISOVUE-300) 100 ML BTL ONE (22:40)
[2017-11-23 01:41] VITALS: BP 112/82
== END 2017-11-23 01:41 | disposition home or self-care (01) ==
DX: N39.0 Urinary tract infection, site not specified (principal); Z87.440 Personal history of urinary (tract) infections; Z87.19 Personal history of other diseases of the digestive system
CPT/HCPCS: 96365; J0696; J1170; Q9967

== ENCOUNTER 2017-11-26 16:35 | Emergency (ER) | payer BC ==
[2017-11-26 18:02] LABS: PLATELET COUNT 212 10^3/uL (150-400)
--- NOTE | 2017-11-26 18:10 | EDPHY ---
H & P Stated Complaint: abd pain Time Seen by Provider: 11/26/17 17:54 HPI/ROS: CHIEF COMPLAINT: The right lower quadrant pain HISTORY OF PRESENT ILLNESS: The patient is a 27-year-old female with a history of IBS and chronic right lower quadrant pain as well as frequent urinary tract infections. 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 She was seen here 4 days ago with similar complaints and at that time had an extensive workup with reassuring blood work and a normal CT scan. She had a nitrate positive urinary tract infection and was started on Keflex. Her cultures have come back for Klebsiella sensitive to Keflex. She states however that her symptoms have not improved and that her symptoms are not consistent with urinary tract infections that she is used to. She has not had a fever. No vaginal bleeding or discharge. She denies risk of . No vomiting. She also complains of mild bilateral flank pain. She had similar complaints a urine half ago and at that time her CT revealed mild constipation. She felt much better with magnesium citrate but states that this does not feel similar to constipation she has had in the past. Severity: Mild Modifying factors: None REVIEW OF SYSTEMS: Constitutional: denies: chills, fever, recent illness, recent injury EENTM: denies: blurred vision, double vision, nose congestion Respiratory: denies: cough, shortness of breath Cardiac: denies: chest pain, irregular heart rate, lightheadedness, palpitations Gastrointestinal/Abdominal: See HPI denies: diarrhea, nausea, vomiting, blood streaked stools Genitourinary: denies: dysuria, frequency, hematuria, pain Musculoskeletal: denies: joint pain, muscle pain Skin: denies: lesions, rash, jaundice, bruising Neurological: denies: headache, numbness, paresthesia, tingling, dizziness, weakness Hematologic/Lymphatic: denies: blood clots, easy bleeding, easy bruising Immunologic/allergic: denies: HIV/AIDS, transplant 10 systems reviewed and negative except as noted EXAM: GENERAL: Well-appearing, comfortable, texting on her phone, well-nourished and in no acute distress. HEAD: Atraumatic, normocephalic. EYES: Pupils equal round and reactive to light, extraocular movements intact, sclera anicteric, conjunctiva are normal. ENT: TMs normal, nares patent, oropharynx clear without exudates. Moist mucous membranes. NECK: Normal range of motion, supple without lymphadenopathy or JVD. LUNGS: Breath sounds clear to auscultation bilaterally and equal. No wheezes rales or rhonchi. HEART: Regular rate and rhythm without murmurs, rubs or gallops. ABDOMEN: Soft, nontender, normoactive bowel sounds. No guarding, no rebound. No masses appreciated. BACK: No CVA tenderness, no spinal tenderness, step-offs or deformities EXTREMITIES: Normal range of motion, no pitting or edema. No clubbing or cyanosis. NEUROLOGICAL: Cranial nerves II through XII grossly intact. Normal speech, normal gait. 5/5 strength, normal movement in all extremities, normal sensation , normal reflexes PSYCH: Normal mood, normal affect. SKIN: Warm, dry, normal turgor, no visible rashes or lesions. Source: Patient Exam Limitations: No limitations - Personal History LMP (Females 10-55): IUD In Place Current Tetanus/Diphtheria Vaccine: Yes Tetanus Vaccine Date: 2008 - Medical/Surgical History Hx Asthma: Yes Hx Chronic Respiratory Disease: No Hx Diabetes: No Hx Cardiac Disease: No Hx Renal Disease: Yes Hx Cirrhosis: No Hx Alcoholism: Yes Hx HIV/AIDS: No Hx Splenectomy or Spleen Trauma: No Other PMH: anxiety, bipolar, depression, Hx. nephrectomy as infant. IBS, PTSD. Asthma - Family History Significant Family History: No pertinent family hx - Social History Smoking Status: Current every day smoker Alcohol Use: Sober Drug Use: None Constitutional: Initial Vital Signs Temperature (C) 37.0 C 11/26/17 16:52 Heart Rate 87 11/26/17 16:52 Respiratory Rate 18 11/26/17 16:52 Blood Pressure 118/72 11/26/17 16:52 O2 Sat (%) 95 11/26/17 16:52 O2 Delivery Mode Room Air Allergies/Adverse Reactions: No Known Allergies Allergy (Verified 11/26/17 16:55) Home Medications: Medication Instructions Recorded Cetirizine [ZyrTEC 10 mg (*)] 10 mg PO HS 06/13/14 Cholecalciferol Vit D3 [Vitamin D3 5,000 units PO DAILY 06/13/14 (*)] Docusate Sodium [Colace 100 MG (*)] 100 mg PO BID 06/13/14 Lansoprazole [Prevacid] 30 mg PO DAILY 06/13/14 Ranitidine HCl [Zantac 75] 150 mg PO HS 06/13/14 Ziprasidone HCl [Geodon 40MG (*)] 120 mg PO HS 06/13/14 Ziprasidone HCl [Geodon 40MG (*)] 40 mg PO DAILY #30 cap 06/19/14 Ziprasidone HCl [Geodon 40MG (*)] 60 mg PO DAILY@18 #60 cap 06/19/14 Gabapentin 05/12/15 Vyvanse 05/12/15 KLONOPIN 03/12/16 Propranolol HCl 03/12/16 Cephalexin [Keflex] 500 mg PO QID 5 Days cap 06/10/16 Metronidazole 500 mg PO BID #14 tablet 07/16/16 Cephalexin [Keflex] 500 mg PO Q6H #28 cap 11/23/17 Medical Decision Making - Diagnostics Imaging Results: Imaging Impressions Pelvic/Renal Ultrasound 11/26/17 18:04 Impression: Normal ultrasound pelvis. Findings and recommendations discussed with Emergency Department physician, GERALDINE NESBITT at 19:36 hour, 11/26/2017. Final report concurs with initial preliminary interpretation. Imaging: Discussed imaging studies w/ public health educator Radiologist ED Course/Re-evaluation: The patient is very comfortable appearing and has no abdominal tenderness on exam. Her lab work and CT scans in the past been reassuring other than urinary tract infections. She is currently being treated appropriately for urinary tract infection. I will repeat the lab work and urinalysis and at an ultrasound of her ovaries. 4:45 p.m. we discussed the ultrasound and lab results which are very reassuring. We discussed the possibility of a ruptured ovarian cyst. We also discussed follow up with her OBGYN for possible rule out endometriosis. She is are also seen by [facility] for IBS. She will follow up with them as well. Differential Diagnosis: Partial list of the Differential diagnosis considered include but were not limited to; chronic abdominal pain, it will bowel syndrome, constipation, urinary tract infection, ovarian cyst, endometriosis and although unlikely based on the history and physical exam, I also considered torsion, appendicitis , kidney stone, hernia, dissection, obstruction. I discussed these differential diagnoses and the plan with the patient as well as the usual and expected course. The patient understands that the diagnosis is provisional and that in medicine we are not always correct and that further workup is often warranted. Usual and customary warnings were given. All of the patient's questions were answered. The patient was instructed to return to the emergency department should the symptoms at all worsen or return, otherwise to followup with the physician as we discussed. - Data Points Laboratory Results: Laboratory Results 11/26/17 17:55 11/26/17 17:55 11/26/17 11/26/17 11/26/17 17:55 17:55 17:55 WBC RBC Hgb Hct MCV MCH MCHC RDW Plt Count MPV Neut % (Auto) Lymph % (Auto) Wheeler % (Auto) Eos % (Auto) Baso % (Auto) Nucleat RBC Rel Count Absolute Neuts (auto) Absolute Lymphs (auto) Absolute Monos (auto) Absolute Eos (auto) Absolute Basos (auto) Absolute Nucleated RBC Immature Gran % Immature Gran # Sodium 143 mEq/L mEq/L (135-145) Potassium 3.8 mEq/L mEq/L (3.3-5.0) Chloride 105 mEq/L mEq/L (97-110) Carbon Dioxide 25 mEq/l mEq/l (22-31) Anion Gap 13 mEq/L mEq/L (6-14) BUN 13 mg/dL mg/dL (7-23) Creatinine 0.9 mg/dL mg/dL (0.6-1.0) Estimated GFR > 60 Glucose 117 mg/dL H mg/dL (70-100) Calcium 9.7 mg/dL mg/dL (8.5-10.4) Total Bilirubin 0.2 mg/dL mg/dL (0.1-1.4) Conjugated Bilirubin 0.2 mg/dL mg/dL (0.0-0.5) Unconjugated Bilirubin 0.0 mg/dL mg/dL (0.0-1.1) AST 22 IU/L IU/L (14-46) ALT 29 IU/L IU/L (9-52) Alkaline Phosphatase 104 IU/L IU/L (38-126) Total Protein 7.3 g/dL g/dL (6.3-8.2) Albumin 4.4 g/dL g/dL (3.5-5.0) Lipase 129 IU/L IU/L (23-300) Beta HCG, Qual NEGATIVE Urine Color YELLOW Urine Appearance CLEAR Urine pH 5.0 (5.0-7.5) Ur Specific [place] 1.021 (1.002-1.030) Urine Protein NEGATIVE (NEGATIVE) Urine Ketones NEGATIVE (NEGATIVE) Urine Blood NEGATIVE (NEGATIVE) Urine Nitrate NEGATIVE (NEGATIVE) Urine Bilirubin NEGATIVE (NEGATIVE) Urine Urobilinogen NEGATIVE EU EU (0.2-1.0) Ur Leukocyte Esterase NEGATIVE (NEGATIVE) Urine Glucose NEGATIVE (NEGATIVE) 11/26/17 17:55 WBC 6.90 10^3/uL 10^3/uL (3.80-9.50) RBC 4.70 10^6/uL 10^6/uL (4.18-5.33) Hgb 14.6 g/dL g/dL (12.6-16.3) Hct 42.0 % % (38.0-47.0) MCV 89.4 fL fL (81.5-99.8) MCH 31.1 pg pg (27.9-34.1) MCHC 34.8 g/dL g/dL (32.4-36.7) RDW 12.5 % % (11.5-15.2) Plt Count 212 10^3/uL 10^3/uL (150-400) MPV 10.2 fL fL (8.7-11.7) Neut % (Auto) 42.0 % % (39.3-74.2) Lymph % (Auto) 45.5 % H % (15.0-45.0) Wheeler % (Auto) 10.6 % % (4.5-13.0) Eos % (Auto) 1.3 % % (0.6-7.6) Baso % (Auto) 0.3 % % (0.3-1.7) Nucleat RBC Rel Count 0.0 % % (0.0-0.2) Absolute Neuts (auto) 2.90 10^3/uL 10^3/uL (1.70-6.50) Absolute Lymphs (auto) 3.14 10^3/uL H 10^3/uL (1.00-3.00) Absolute Monos (auto) 0.73 10^3/uL 10^3/uL (0.30-0.80) Absolute Eos (auto) 0.09 10^3/uL 10^3/uL (0.03-0.40) Absolute Basos (auto) 0.02 10^3/uL 10^3/uL (0.02-0.10) Absolute Nucleated RBC 0.00 10^3/uL 10^3/uL (0-0.01) Immature Gran % 0.3 % % (0.0-1.1) Immature Gran # 0.02 10^3/uL 10^3/uL (0.00-0.10) Sodium Potassium Chloride Carbon Dioxide Anion Gap BUN Creatinine Estimated GFR Glucose Calcium Total Bilirubin Conjugated Bilirubin Unconjugated Bilirubin AST ALT Alkaline Phosphatase Total Protein Albumin Lipase Beta HCG, Qual Urine Color Urine Appearance Urine pH Ur Specific [place] Urine Protein Urine Ketones Urine Blood Urine Nitrate Urine Bilirubin Urine Urobilinogen Ur Leukocyte Esterase Urine Glucose Departure - Departure Disposition: Home, Routine, Self-Care Clinical Impression: Chronic abdominal pain Condition: Good Instructions: Chronic Abdominal Pain (ED) Referrals: LOPEZ BROWN [Primary Care Provider] - As per Instructions [facility] [Outside] - 2-3 days, call for appt. [facility] [Provider Group] - 5-7 days, call for appt.
[2017-11-26 20:11] VITALS: BP 120/78
== END 2017-11-26 20:11 | disposition home or self-care (01) ==
DX: R10.31 Right lower quadrant pain (principal); G89.29 Other chronic pain

== ENCOUNTER → 2018-01-07 | Outpatient (CLI) | payer BC | LOC: FIMAGING 10:43 | PROVIDERS: ATTEND Physician Assistant | DX: R13.10 Dysphagia, unspecified (principal) ==

== ENCOUNTER 2018-04-16 12:15 | Emergency (ER) | payer MEDICAID ==
--- NOTE | 2018-04-16 12:50 | EDPHY ---
H & P Stated Complaint: "had anxiety attack" last night syncoped hit head on wall Time Seen by Provider: 04/16/18 12:50 HPI/ROS: HPI: This is a 27-year-old female who presents with Chief Complaint: "had anxiety attack" last night syncope hit head on wall Location: Head Quality: Injury Duration: Last night around 9:00 p.m.. Signs and Symptoms: no fever, + nausea, + vomiting x 7 times, + photophobia, + noise sensitivity, no neck stiffness, no ear pain, no tinnitus, no nasal congestion, no sinus pressure, no weakness, no radiation, no aura Timing: Acute, intermittent episodes Severity: Moderate Context: Patient reports that she had a anxiety and panic attack last night and accidentally hit the front of her head on the wall. She questions loss of consciousness and has complained of dizziness, nausea and vomiting x7 since last night. Reports prior history of 1 concussion in the past. Also has history of migraine headaches. Patient denies actually having migraine at this time. Reports "this feels different." She also complains of posterior neck pain. Denies amnesia. Further patient reports that she has been out of her clonazepam for 3 days as she normally gets male order prescriptions and it was either "lost or someone stole it from her porch." She reports that she will have her new prescription of clonazepam on Wednesday. Denies homicidal ideation , suicidal ideation, hallucinations. Modifying Factors: None Comment: ROS: A comprehensive 10 system review of systems is otherwise negative aside from elements mentioned in the history of present illness. MEDICAL/SURGICAL/SOCIAL HISTORY: Medical history: anxiety, bipolar, depression, IBS, PTSD, Asthma Surgical history: nephrectomy as infant Social history: Never smoked. Family history noncontributory. CONSTITUTIONAL: Anxious, nontoxic-appearing, overweight young adult white female, awake and alert, no obvious distress HEENT: Atraumatic and normocephalic. Pupils equal and reactive to light. Extraocular movements intact. NECK: supple, mild midline tenderness, flexion 45 degrees, extension 45 degrees , right and left lateral flexion 45 degrees. No meningismus. Cardiovascular: Normal S1/S2, regular rate, regular rhythm, without murmur rub or gallop. PULMONARY/CHEST: Symmetrical and nontender. Clear to auscultation bilaterally. Good air movement. No accessory muscle usage. ABDOMEN: Soft, nondistended, nontender. EXTREMITIES: 2/2 pulses, strength 5/5, DIP/PIP/MCP flexion/extension intact with good light touch sensation. no deformities, no clubbing, no cyanosis or edema. NEUROLOGICAL: no focal neuro deficits. GCS 15. Light touch sensation intact. Cranial nerves 2-12 grossly intact. Speech clear. SKIN: Warm and dry, no erythema. no rash. Good capillary refill. Source: Patient Exam Limitations: No limitations - Personal History LMP (Females 10-55): Now Tetanus Vaccine Date: 2008 - Medical/Surgical History Hx Asthma: No Hx Chronic Respiratory Disease: No Hx Diabetes: No Hx Cardiac Disease: No Hx Renal Disease: Yes Hx Cirrhosis: No Hx Alcoholism: No Hx HIV/AIDS: No Hx Splenectomy or Spleen Trauma: No Other PMH: anxiety, bipolar, depression, Hx. nephrectomy as . IBS, PTSD. Asthma - Social History Smoking Status: Never smoked Constitutional: Initial Vital Signs Temperature (C) 37.0 C 04/16/18 12:19 Heart Rate 118 H 04/16/18 12:19 Respiratory Rate 16 04/16/18 12:19 Blood Pressure 155/103 H 04/16/18 12:19 O2 Sat (%) 97 04/16/18 12:19 O2 Delivery Mode Room Air Allergies/Adverse Reactions: No Known Allergies Allergy (Verified 11/26/17 16:55) Home Medications: Medication Instructions Recorded Cetirizine [ZyrTEC 10 mg (*)] 10 mg PO HS 06/13/14 Cholecalciferol Vit D3 [Vitamin D3 5,000 units PO DAILY 06/13/14 (*)] Docusate Sodium [Colace 100 MG (*)] 100 mg PO BID 06/13/14 Lansoprazole [Prevacid] 30 mg PO DAILY 06/13/14 Ranitidine HCl [Zantac 75] 150 mg PO HS 06/13/14 Ziprasidone HCl [Geodon 40MG (*)] 120 mg PO HS 06/13/14 Ziprasidone HCl [Geodon 40MG (*)] 40 mg PO DAILY #30 cap 06/19/14 Ziprasidone HCl [Geodon 40MG (*)] 60 mg PO DAILY@18 #60 cap 06/19/14 Gabapentin 05/12/15 Vyvanse 05/12/15 KLONOPIN 03/12/16 Propranolol HCl 02/02/17 Cephalexin [Keflex] 500 mg PO QID 5 Days cap 06/10/16 Metronidazole 500 mg PO BID #14 tablet 07/16/16 Cephalexin [Keflex] 500 mg PO Q6H #28 cap 11/23/17 Promethazine HCl 25 mg PO Q6 PRN #10 tablet 04/16/18 Medical Decision Making - Diagnostics Imaging Results: Imaging Impressions Cervical Spine CT 04/16/18 12:47 Impression: 1. No acute fracture or soft tissue swelling. 2. If the patient has persistent pain or neurologic deficits, consider cervical spine MRI. Madhavi Vila was notified of these findings by telephone at 2:43 PM 04/16/[address] 04/16/18 12:47 Impression: 1. No evidence of acute intracranial hemorrhage or calvarial fracture. Madhavi Vila was notified of these findings by telephone at 2:43 PM 04/16/2018 ED Course/Re-evaluation: Vital signs reviewed and show mildly elevated blood pressure and tachycardia. Based on nexus protocol; patient has vomited 7 times; head CT imaging ordered Patient has midline cervical tenderness; cervical CT imaging ordered Given PO promethazine 25 mg and p.o. Tylenol 1000 mg 1455: Called By radiologist, Dr. Escamilla, who reports CT cervical scan shows no acute fracture, dislocation. Head CT scan shows no acute intracranial process. Given written and verbal concussion precautions. Referral to concussion Clinic. Advised ER will not prescribe chronic psychiatric medications No signs of neurovascular compromise/tenting of skin/compartment syndrome/ extremities and joints examined above and below area of concern and are neurovascularly intact. This patient was seen under the supervision of my secondary supervising physician. I evaluated care for this patient independently. Differential Diagnosis: Head injury including but not limited to concussion, skull fracture, intraparenchymal contusion, subarachnoid, subdural and epidural hematoma. - Data Points Medications Given: Discontinued Medications Acetaminophen (Tylenol) 1,000 mg PO EDNOW ONE Stop: 04/16/18 12:54 Last Admin: 04/16/18 13:04 Dose: 1,000 mg Promethazine HCl (Phenergan) 25 mg PO EDNOW ONE Stop: 04/16/18 12:54 Last Admin: 04/16/18 13:05 Dose: 25 mg Departure - Departure Disposition: Home, Routine, Self-Care Clinical Impression: Closed head injury with concussion Qualifiers: Encounter type: initial encounter Loss of consciousness presence/duration: without LOC Qualified Code(s): S06.0X0A - Concussion without loss of consciousness, initial encounter Condition: Good Instructions: Concussion (ED), Head Injury (ED) Additional Instructions: You sustained a closed head injury and mild concussion and it is recommended that you observe concussion precautions. Please do not participate in any contact sports or moderate and strenuous activity until all symptoms have resolved or cleared by PCP/Concussion Clinic. Take Tylenol 650 mg every 4 hours and/or Ibuprofen 600 mg every 8 hours with food as needed for pain/headache. Take Promethazine every 6 hours as needed for nausea, vomiting. Consume a minimum of 8-10 glasses of water or electrolyte fluid replacement drinks that include Gatorade, Powerade, Pedialyte. Please follow-up with primary care provider in 5-7 days. If symptoms last longer than 1 week, please follow-up with Dr. Marin in the concussion Clinic. Return to the ER immediately if you have progressive headaches, neurologic deficits, gait abnormality, visual disturbance, slurred speech, or any other symptom that concerns you. Referrals: Karlene Marin MD [Medical Doctor] - As per Instructions Prescriptions: Promethazine HCl 25 mg PO Q6 PRN #10 tablet PRN Reason: Nausea/Vomiting, Use 1st
[2018-04-16] MEDS ORDERED: PROMETHAZINE HCL 25 MG TAB PO ONE (12:53)
[2018-04-16] MEDS ORDERED: ACETAMINOPHEN 500 MG TAB PO ONE (12:53)
[2018-04-16 15:07] VITALS: BP 129/87
== END 2018-04-16 14:55 | disposition home or self-care (01) ==
DX: S06.0X0A Concussion without loss of consciousness, initial encounter (principal); F41.9 Anxiety disorder, unspecified; W22.8XXA Striking against or struck by other objects, initial encounter

== ENCOUNTER 2018-05-25 18:42 | Emergency (ER) | payer MEDICAID ==
[2018-05-25] MEDS ORDERED: diphenhydrAMINE 12.5 MG/5 ML UDCUP PO ONE (19:17)
[2018-05-25] MEDS ORDERED: diphenhydrAMINE 25 MG CAP PO ONE (19:25)
--- NOTE | 2018-05-25 19:37 | EDPHY ---
General Time Seen by Provider: 05/25/18 18:52 Narrative: CLINICAL IMPRESSION: Allergic reaction ASSESSMENT/PLAN: 27-year-old female presents to the emergency department complaining of shortness of breath, dizziness and feeling unwell after taking a new homeopathic digestive enzyme. Patient was brought by EMS, received a DuoNeb prior to arrival. She has stable vital signs on arrival with no hypoxia, respiratory distress, audible wheezing or stridor, and is tolerating secretions well. She has a mild pureed ache rash to the anterior neck that improved with Benadryl. No obvious tongue swelling or upper airway compromise. No history of anaphylaxis. Lungs are clear. Patient reported feeling significantly improved after Benadryl and was comfortable going home. Encouraged PCP and possible allergy follow-up. Warning signs return to ED sooner outlined in discharge. DIFFERENTIAL DX: Differential includes but not limited to acute allergic reaction, acute reactive airway disease, anxiety ED PROCEDURES: See lab and/or imaging results below ED COURSE: 7:00 p.m.: Patient seen and assessed by myself. Vital signs stable, no tachycardia, tachypnea, respiratory distress, audible wheezing or stridor, tolerating secretions well, no hypoxia. Patient reports "I do not even think I need to be here". She received a DuoNeb by EMS prior to arrival. She is reporting an itchy rash to the neck and a sensation that her tongue is "puffy". I do not appreciate upper airway compromise. I will give her a dose of diphenhydramine and observed. 8:15 p.m.: Patient reassessed. States "I am feeling so much better". She is watching game of thrones. Rash is less itchy, tolerating secretions. Ready to go home. CHIEF COMPLAINT: Shortness of breath HPI: 27-year-old female presents to the emergency department by ambulance after she reportedly became short of breath, dizzy, and generally feeling unwell after taking an homeopathic digestive enzyme that she has never taken before. She reports she called EMS but did not feel that she needed to come to the emergency department and was "talked into it". She received a DuoNeb by EMS prior to arrival. She does have a history of heat or exercise induced asthma and only takes albuterol as needed. She reports her chest feels tight and she is having difficulty getting a full breath of air but states this does not feel like her asthma. She has no reported history of anaphylaxis. No new prescription medications or dose changes. She reports an itchy rash to the anterior neck that began earlier today before she ingested the homeopathic agent. She reports her tongue feels "puffy". She reports no difficulty handling secretions. No rash to the face arms torso or back. She did not take anything prior to arrival for her symptoms other than EMS treatment. PAST MEDICAL HISTORY: Anxiety, bipolar, depression, IBS, PTSD See triage summary and nurse notes for addition applicable history Pertinent Past Surgical History: Nephrectomy as an infant Family History: No first-degree family relative with a history of anaphylaxis or cardiopulmonary disease Social History: Nonsmoker REVIEW OF SYSTEMS: A full 10 point review of systems was negative except for those mentioned in HPI. PHYSICAL EXAM: General Appearance: Alert, oriented, appropriate, cooperative, NAD, well hydrated, non-toxic appearing, sitting on the bed comfortably with eyes closed, VSS, no hypoxia, respiratory distress, audible stridor or wheezing HEENT: TMs are clear bilaterally no perforation or FB, no injection, no evidence of serous or mucopurulent otitis. Oropharynx clear is no erythema or exudates, no tonsillar hypertrophy or asymmetry. No tongue swelling, intraoral lesions or mucosal blisters. Dentition without abnormality. Eyes: PERRLA, no acute vision change, nystagmus, swelling, discharge, pain or photosensitivity. Conjunctiva pink, no pallor or injection Neck: Supple, nontender, no lymphadenopathy, no midline pain, FROM, no meningismus. Respiratory: There are no retractions, lungs are clear to auscultation. Cardiac: Regular rate and rhythm, no murmurs or gallops. Gastrointestinal: Abdomen is soft, nontender, bowel sounds normal, no masses/ hernia, no rigidity, guarding or focal peritoneal findings. Skin: Warm, dry, no rashes, no nodules on palpation. Maculopapular blanchable rash noted to the anterior lower neck. No other rash appreciated MEDICAL DECISION MAKING: Patient was seen independently. Secondary supervising physician at time of evaluation was: Dr. Shaffer. Diagnosis: Allergic reaction. New, requires workup Summary: See Assessment and Plan for summary of ED visit Patient Progress: Improved, stable for discharge. - History Smoking Status: Never smoked - Objective Vital Signs: Initial Vital Signs Temperature (C) 36.7 C 05/25/18 18:47 Heart Rate 63 05/25/18 18:47 Respiratory Rate 18 05/25/18 18:47 Blood Pressure 136/91 H 05/25/18 18:47 O2 Sat (%) 94 05/25/18 18:47 O2 Delivery Mode Room Air Allergies/Adverse Reactions: No Known Allergies Allergy (Verified 05/25/18 18:45) Home Medications: Medication Instructions Recorded Cetirizine [ZyrTEC 10 mg (*)] 10 mg PO HS 06/13/14 Cholecalciferol Vit D3 [Vitamin D3 5,000 units PO DAILY 06/13/14 (*)] Docusate Sodium [Colace 100 MG (*)] 100 mg PO BID 06/13/14 Lansoprazole [Prevacid] 30 mg PO DAILY 06/13/14 Ranitidine HCl [Zantac 75] 150 mg PO HS 06/13/14 Ziprasidone HCl [Geodon 40MG (*)] 120 mg PO HS 06/13/14 Ziprasidone HCl [Geodon 40MG (*)] 40 mg PO DAILY #30 cap 06/19/14 Ziprasidone HCl [Geodon 40MG (*)] 60 mg PO DAILY@18 #60 cap 06/19/14 Gabapentin 05/12/15 Vyvanse 05/12/15 KLONOPIN 03/12/16 Propranolol HCl 03/12/16 Cephalexin [Keflex] 500 mg PO QID 5 Days cap 06/10/16 Metronidazole 500 mg PO BID #14 tablet 07/16/16 Cephalexin [Keflex] 500 mg PO Q6H #28 cap 11/23/17 Promethazine HCl 25 mg PO Q6 PRN #10 tablet 04/16/18 Medications Given: Discontinued Medications Diphenhydramine HCl (Benadryl Oral Liquid) 50 mg PO EDNOW ONE Stop: 05/25/18 19:18 Last Admin: 05/25/18 19:43 Dose: Not Given Diphenhydramine HCl (Benadryl) 50 mg PO EDNOW ONE Stop: 05/25/18 19:26 Last Admin: 05/25/18 19:27 Dose: 50 mg Departure - Departure Disposition: Home, Routine, Self-Care Clinical Impression: Allergic reaction Condition: Fair Instructions: Allergies (ED) Additional Instructions: DISCHARGE INSTRUCTIONS FROM YOUR DOCTOR Thank you for visiting our emergency department today. You were treated by a physician medical research assistant today and your case was reviewed with our ED Attending physician. Please keep in mind that discharge from the emergency department does not mean that there is nothing wrong - it simply means that we have not identified an emergency condition that requires further evaluation or treatment in the hospital. You should always plan to follow up with primary care for re- evaluation of your condition in the next 2-3 days. If you have been referred to a specialist, please call as soon as possible (today or tomorrow) to schedule your follow up appointment at the appropriate time. YOU RECEIVED BENADRYL IN THE EMERGENCY DEPARTMENT WITH IMPROVEMENT IN YOUR SYMPTOMS. NO EVIDENCE OF ANAPHYLAXIS, RESPIRATORY DISTRESS OR HYPOXIA. PLEASE AVOID ANY NEW FOODS OR [id number] REMEDIES. FOLLOW UP WITH A PRIMARY CARE DOCTOR. RETURN TO THE EMERGENCY DEPARTMENT FOR WORSENING RASH, SHORTNESS OF BREATH, CHEST TIGHTNESS, TONGUE SWELLING, DIFFICULTY SWALLOWING SALIVA, BLISTERING TO THE SKIN OR INSIDE THE MOUTH, OR ANY OTHER CONCERNS. People present with illnesses and injuries in different ways, and it is always possible that we have missed something. You may always return for re-evaluation if symptoms worsen or if they are not improving or if you develop new/different symptoms. Again, thank you for choosing our emergency department. We hope that you feel better. Referrals: NONE *PRIMARY CARE P,. [Primary Care Provider] - As per Instructions Susie Conroy MD [Medical Doctor] - 2-3 days, if not improved
[2018-05-25 20:42] VITALS: BP 133/69
== END 2018-05-25 20:42 | disposition home or self-care (01) ==
LOC: EDUNIT#
DX: T78.40XA Allergy, unspecified, initial encounter (principal)

== ENCOUNTER 2018-07-18 07:37 | Observation (INO) | payer MEDICAID | END 2018-07-19 17:30 | disposition home or self-care (01) | LOC: F2N 07:37 → F3E 10:58 ==

== ENCOUNTER 2018-07-25 15:39 | Emergency (ER) | payer MEDICAID | END 2018-07-25 18:06 | disposition home or self-care (01) ==

== ENCOUNTER → 2018-08-01 | Outpatient (CLI) | payer MEDICAID | LOC: FIMAGING 17:21 ==